=== PATIENT | male | born 1985 | race African-American/Black ===

== ENCOUNTER 2018-06-07 08:29 | Outpatient (CLI) | payer OTHER ==
--- NOTE | 2018-06-07 10:44 | MRI ---
MRI RIGHT ANKLE: 06/07/2018 PROVIDED CLINICAL HISTORY: Right ankle pain. FINDINGS: The anterior extensor, medial flexor, and peroneal and Achilles tendons demonstrate an intact MR appe arance. The medial and lateral ankle ligaments apparent intact. Alignment appears anatomic. Joint spaces appear preserved. No regional joint effusion is evident. The plantar aponeurosis appears normal. The courses of the regional major neurovascular structures a ppear unremarkable. There is preservation of the normal fat signal intensity in the tarsal sinus. IMPRESSION: No evidence for internal derangement. POS: [facility]
--- NOTE | 2018-06-07 10:53 | MRI ---
MRI RIGHT KNEE: 06/07/2018 PROVIDED CLINICAL HISTORY: Right knee pain. FINDINGS: The anterior cruciate ligament, the posterior cruciate ligament, the medial collateral ligament, and the lateral collateral ligament complex demonstrate an intact MR appearance, as does the extensor mec hanism. Medial and lateral menisci demonstrate no evidence for tear. No focal articular cartilage defect hitesh arent. Signal and homogeneity involving the patellar articular cartilage, in the region of the media n ridge and at the medial aspect of the lateral facet, compatible with low grade chondromalacia. The amount of fluid within the knee joint appears physiologic. Regional marrow signal unaffected by metallic susceptibility artifact from partially visualized femoral nail appears unremarkable. IMPRESSION: 1. No evidence for internal derangement. 2. Mild patellar chondrosis. POS: [facility]
== END 2018-06-07 08:30 | disposition home or self-care (01) ==
LOC: SCSMRI 08:29
PROVIDERS: ATTEND Family Medicine
DX: S93.411D Sprain of calcaneofibular ligament of right ankle, subsequent encounter (principal); S83.91XD Sprain of unspecified site of right knee, subsequent encounter; M22.8X1 Other disorders of patella, right knee

== ENCOUNTER 2019-04-16 13:09 | Outpatient (CLI) | payer OTHER ==
--- NOTE | 2019-04-16 16:00 | MRI ---
RIGHT SHOULDER MRI WITHOUT IV CONTRAST: Date: 04/16/19 HISTORY: M24.811, right shoulder pain following an injury. FINDINGS: Mild AC joint arthrosis changes are noted. There is some subtle increased signal at the insertion of the supraspinatus tendon, evidence for some focal tendinopathy, as well as magic angle region in the region of the conjoined tendon. No evidence for complete full thickness retracted tear. Subscapularis tendon and biceps tendons appear intact. Rotator cuff muscles are within normal limits of signal and volume. No acute osteochondral defect or abnormal marrow signal. IMPRESSION: Evidence for minimal tendinopathy at the supraspinatus tendon insertion region and at the level of th e magic angle in the region of the conjoined tendon. Very mild AC joint arthrosis. No evidence for ot her acute process. POS: [facility]
== END 2019-04-16 13:10 | disposition home or self-care (01) ==
LOC: SCSMRI 13:09
PROVIDERS: ATTEND Family Medicine
DX: M24.811 Other specific joint derangements of right shoulder, not elsewhere classified (principal); M19.011 Primary osteoarthritis, right shoulder; M75.81 Other shoulder lesions, right shoulder

== ENCOUNTER 2021-03-11 12:05 | Outpatient (CLI) | payer OTHER | END 2021-03-11 12:06 | disposition home or self-care (01) | LOC: SCSMRI 12:05 | PROVIDERS: ATTEND Family Medicine | DX: S89.92XD Unspecified injury of left lower leg, subsequent encounter (principal); S80.02XD Contusion of left knee, subsequent encounter; S86.912D Strain of unspecified muscle(s) and tendon(s) at lower leg level, left leg, subsequent encounter ==